=== PATIENT | male | born 1950 | race Caucasian/White ===

== ENCOUNTER 2024-09-20 14:11 | Inpatient (IN) | payer BC, MEDICARE ==
[2024-09-20 14:40] LABS: #Basophils 0.08 10x3/uL (0.0-0.2); %Basophils 0.9 % (0.0-1.0); %Eosinophils 0.3 % (0.0-10.0); %Lymphocytes 15.5 % (21.0-51.0); %Monocytes 6.5 % (0.0-10.0); Hematocrit 45.2 % (42.0-52.0); Hemoglobin 16.5 g/dL (14.0-18.0); Mean Corpuscular HGB CONC 36.5 g/dL (32.0-36.0); Mean Corpuscular Hemoglobin 31.3 pg (27.0-31.0); Mean Corpuscular Volume 85.6 fL (78.0-98.0); Mean Platelet Volume 10.2 fL (7.4-10.4); Platelet Count 289 10x3/uL (130-400); RBC Distribution Width 14.8 % (11.5-14.5); Red Blood Cell (RBC) Count 5.28 mill/uL (4.70-6.10)
[2024-09-20] MEDS ORDERED: Nitroglycerin 2% Ointment 1 INCH/1 GM Packet ONE (14:40)
[2024-09-20] MEDS ORDERED: Furosemide 40 MG (4 mL) VIAL ONE (14:41)
[2024-09-20 15:02] LABS: ALT (SGPT) 24 U/L (8-55); AST (SGOT) 28 U/L (5-34); Albumin 3.6 g/dL (3.4-4.8); Alkaline Phosphatase 82 U/L (40-110); Anion Gap 22 mmol/L (10-20); BUN (Urea Nitrogen) 30 mg/dL (8.4-25.7); Bilirubin, Total 1.8 mg/dL (0.2-1.2); Calc. Creatinine Clearance 0 mL/min (70-130); Calcium 8.8 mg/dL (7.8-10.44); Carbon Dioxide 37 mmol/L (23-31); Chloride 85 mmol/L (98-107); Estimated GFR 36; Globulin 4.4 g/dL (2.4-3.5); Glucose 189 mg/dL (83-110); Potassium 1.9 mmol/L (3.5-5.1); Sodium 142 mmol/L (136-145)
[2024-09-20 15:03] LABS: Troponin I 0.144 ng/mL (< 0.028)
[2024-09-20] MEDS ORDERED: Potassium Chloride 20 MEQ TAB ONE ×2 (15:05→18:46)
[2024-09-20] MEDS ORDERED: Potassium Chloride 20 MEQ (100 mL) BAG ONE ×3 (15:09→22:57)
[2024-09-20] MEDS ORDERED: Electrolyte Replacement Protocol FS SCH (15:29)
[2024-09-20 15:45] LABS: INR-International Normal Ratio 1.2; PTT 31.7 sec (22.9-36.1); Prothrombin Time 15.4 sec (12.0-14.7)
[2024-09-20] MEDS ORDERED: Heparin 25,000 units/D5W 500 ML ONE (15:47)
[2024-09-20] MEDS ORDERED: DOBUTamine 500 mg/250 ml 250 ML ONE ×2 (15:47→22:55)
[2024-09-20] MEDS ORDERED: Aspirin Chewable 81 MG TAB ONE (15:47)
[2024-09-20] MEDS ORDERED: Heparin 5,000 UNITS/ML VIAL ONE (15:47)
[2024-09-20] MEDS: AcetaZOLAMIDE 250 MG TAB PO SCH (17:00)
[2024-09-20 18:07] LABS: Troponin I 0.127 ng/mL (< 0.028)
[2024-09-20 18:08] LABS: Magnesium 1.7 mg/dL (1.6-2.6); Potassium 2.6 mmol/L (3.5-5.1)
[2024-09-20] MEDS: Magnesium Sulfate In Water 4 GM in Premix 1 BAG IVPB SCH (19:02)
[2024-09-20] MEDS: Potassium Chloride 20 MEQ TAB PO SCH (19:03)
[2024-09-20] MEDS ORDERED: Heparin 25,000 units/D5W 500 ML IVPB SCH (20:15)
[2024-09-20] MEDS ORDERED: Heparin 10,000 UNITS/ 10 ML VIAL SLOW IVP SCH (20:15)
[2024-09-20] MEDS ORDERED: Famotidine 20 MG TAB ONE (20:25)
[2024-09-20] MEDS: Famotidine 20 MG TAB PO SCH (20:28)
[2024-09-20 20:41] LABS: Hematocrit 38.4 % (42.0-52.0); Hemoglobin 13.8 g/dL (14.0-18.0); Platelet Count 248 10x3/uL (130-400)
[2024-09-20 20:53] LABS: Troponin I 0.133 ng/mL (< 0.028)
[2024-09-20] MEDS: Potassium Chloride 20 MEQ in Premix 1 BAG IVPB SCH (21:01)
[2024-09-20] MEDS ORDERED: Lorazepam 2 MG/ML VIAL ONE (21:34)
[2024-09-20] MEDS: Lorazepam 2 MG/ML VIAL SLOW IVP SCH (21:41)
[2024-09-21] MEDS: Melatonin 3 MG TAB PO SCH (01:17)
[2024-09-21] MEDS ORDERED: acetaZOLAMIDE Sodium 500 mg Vial IVP SCH (02:00)
[2024-09-21] MEDS: Potassium Chloride 40 MEQ in Sodium Chloride 0.9% 250 ML 250 ML IVPB SCH (02:44)
[2024-09-21 03:17] LABS: Bacteria/HPF None Seen HPF (None Seen); Bilirubin Negative (Negative); Blood, Urine Negative (Negative); Clarity Clear (Clear); Glucose, Urine (Dipstick) Normal (Negative); Ketone, Urine Negative (Negative); Leukocyte Negative Leu/uL (Negative); Nitrite Negative (Negative); Protein, Urine (Dipstick) 10 mg/dL (Neg-Trace); RBC/HPF 0-3 HPF (0-3); Squamous Epithelial None Seen HPF (0-3); Urobilinogen 3 mg/dL (Less than 2); WBC/HPF None Seen HPF (0-3); pH, Urine 6.5 (5.0-9.0)
[2024-09-21] MEDS: DOBUTamine 500 mg/250 ml 250 ML IVPB SCH (03:55)
[2024-09-21 06:38] LABS: #Eosinophils Less than 0.03 10x3/uL (0.0-0.7); %Eosinophils 0.2 % (0.0-10.0); %Lymphocytes 15.4 % (21.0-51.0); %Monocytes 8.3 % (0.0-10.0); %Neutrophils 74.3 % (42.0-75.0); Hematocrit 35.3 % (42.0-52.0); Hemoglobin 12.6 g/dL (14.0-18.0); Mean Corpuscular HGB CONC 35.7 g/dL (32.0-36.0); Mean Corpuscular Hemoglobin 31.6 pg (27.0-31.0); Mean Corpuscular Volume 88.5 fL (78.0-98.0); Mean Platelet Volume 10.5 fL (7.4-10.4); Platelet Count 230 10x3/uL (130-400); RBC Distribution Width 15.2 % (11.5-14.5); Red Blood Cell (RBC) Count 3.99 mill/uL (4.70-6.10)
[2024-09-21 06:46] LABS: Potassium 2.2 mmol/L (3.5-5.1)
[2024-09-21 06:54] LABS: Anion Gap 14 mmol/L (10-20); BUN (Urea Nitrogen) 27 mg/dL (8.4-25.7); Calc. Creatinine Clearance 65 mL/min (70-130); Carbon Dioxide 40 mmol/L (23-31); Chloride 91 mmol/L (98-107); Estimated GFR 41; Glucose 120 mg/dL (83-110); Magnesium 2.3 mg/dL (1.6-2.6); Potassium 2.2 mmol/L (3.5-5.1); Sodium 143 mmol/L (136-145)
[2024-09-21 07:05] LABS: Hemoglobin A1c 5.1 % (4.0-6.0)
[2024-09-21] MEDS: FLU (Fluad Triv) TS24-25 (65UP)/MF59C/PF 45 MCG/0.5 ML Syringe IM ONE (08:03)
[2024-09-21] MEDS: Potassium Chloride 40 MEQ in Premix 1 BAG IVPB SCH (08:56)
[2024-09-21] MEDS: Multivitamin W/ Minerals 1 TAB PO SCH (08:56)
[2024-09-21] MEDS: Thiamine 100 MG TAB PO SCH (08:56)
[2024-09-21] MEDS: Furosemide 40 MG (4 mL) VIAL SLOW IVP SCH (08:57)
[2024-09-21] MEDS: Potassium Chloride 20 MEQ TAB PO SCH ×2 (08:57→22:09)
[2024-09-21] MEDS: Folic Acid 1 MG TAB PO SCH (08:57)
[2024-09-21] MEDS: Heparin 5,000 UNITS/ML VIAL SC SCH (09:55)
[2024-09-21] MEDS: AcetaZOLAMIDE 250 MG TAB PO SCH (14:30)
[2024-09-21 19:28] LABS: Anion Gap 15 mmol/L (10-20); BUN (Urea Nitrogen) 26 mg/dL (8.4-25.7); Calc. Creatinine Clearance 62 mL/min (70-130); Carbon Dioxide 39 mmol/L (23-31); Chloride 93 mmol/L (98-107); Estimated GFR 38; Glucose 129 mg/dL (83-110); Potassium 2.9 mmol/L (3.5-5.1); Sodium 144 mmol/L (136-145)
[2024-09-21] MEDS ORDERED: Potassium Chloride 40 MEQ in Sodium Chloride 0.9% 250 ML 250 ML IVPB SCH (21:30)
[2024-09-21] MEDS: Melatonin 3 MG TAB PO PRN (22:09)
[2024-09-22 05:01] LABS: Anion Gap 15 mmol/L (10-20); BUN (Urea Nitrogen) 25 mg/dL (8.4-25.7); Calc. Creatinine Clearance 54 mL/min (70-130); Calcium 8.3 mg/dL (7.8-10.44); Carbon Dioxide 35 mmol/L (23-31); Chloride 96 mmol/L (98-107); Estimated GFR 41; Glucose 130 mg/dL (83-110); Potassium 3.4 mmol/L (3.5-5.1); Sodium 143 mmol/L (136-145)
[2024-09-22] MEDS: Potassium Chloride 20 MEQ TAB PO SCH ×3 (07:23→16:11)
[2024-09-22] MEDS: Furosemide 40 MG (4 mL) VIAL SLOW IVP SCH (10:16)
[2024-09-22] MEDS: acetaZOLAMIDE Sodium 500 mg Vial IVP SCH ×2 (10:31→13:14)
[2024-09-22] MEDS: Acetaminophen 325 MG TAB PO PRN (13:13)
[2024-09-22 20:25] LABS: Hematocrit 39.5 % (42.0-52.0); Hemoglobin 13.4 g/dL (14.0-18.0); Platelet Count 243 10x3/uL (130-400)
[2024-09-23] MEDS: Furosemide 20 MG (2 mL) VIAL SLOW IVP SCH ×2 (05:13→13:29)
[2024-09-23 05:27] LABS: Anion Gap 15 mmol/L (10-20); BUN (Urea Nitrogen) 22 mg/dL (8.4-25.7); Calc. Creatinine Clearance 59 mL/min (70-130); Calcium 8.6 mg/dL (7.8-10.44); Carbon Dioxide 34 mmol/L (23-31); Chloride 99 mmol/L (98-107); Estimated GFR 51; Glucose 102 mg/dL (83-110); Potassium 3.1 mmol/L (3.5-5.1); Sodium 145 mmol/L (136-145)
[2024-09-23] MEDS: Cefepime 1 GM in Sodium Chloride 0.9% 100 ML IVPB SCH (10:36)
[2024-09-23] MEDS: Potassium Chloride 20 MEQ TAB PO SCH ×2 (11:12→18:09)
[2024-09-23] MEDS: hydrALAZINE 20 MG/ML VIAL SLOW IVP PRN (11:24)
[2024-09-23] MEDS: AcetaZOLAMIDE 250 MG TAB PO SCH (13:29)
[2024-09-23] MEDS: Lorazepam 2 MG/ML VIAL SLOW IVP SCH (14:59)
[2024-09-24 04:07] LABS: #Basophils 0.08 10x3/uL (0.0-0.2); %Basophils 0.9 % (0.0-1.0); %Eosinophils 3.2 % (0.0-10.0); %Lymphocytes 12.4 % (21.0-51.0); %Monocytes 8.3 % (0.0-10.0); %Neutrophils 74.5 % (42.0-75.0); Hematocrit 38.9 % (42.0-52.0); Hemoglobin 12.6 g/dL (14.0-18.0); Mean Corpuscular HGB CONC 32.4 g/dL (32.0-36.0); Mean Corpuscular Hemoglobin 31.4 pg (27.0-31.0); Mean Platelet Volume 10.7 fL (7.4-10.4); Platelet Count 217 10x3/uL (130-400); RBC Distribution Width 15.7 % (11.5-14.5); Red Blood Cell (RBC) Count 4.01 mill/uL (4.70-6.10)
[2024-09-24 04:26] LABS: Anion Gap 15 mmol/L (10-20); BUN (Urea Nitrogen) 26 mg/dL (8.4-25.7); Calc. Creatinine Clearance 55 mL/min (70-130); Calcium 8.6 mg/dL (7.8-10.44); Carbon Dioxide 29 mmol/L (23-31); Chloride 105 mmol/L (98-107); Estimated GFR 47; Glucose 119 mg/dL (83-110); Potassium 3.5 mmol/L (3.5-5.1); Sodium 145 mmol/L (136-145)
[2024-09-24] MEDS: hydrALAZINE 25 MG TAB PO SCH (12:51)
[2024-09-24] MEDS: Cefepime 2 GM in Sodium Chloride 0.9% 100 ML IVPB SCH (23:57)
[2024-09-25 04:02] LABS: #Basophils 0.11 10x3/uL (0.0-0.2); #Eosinophils Less than 0.03 10x3/uL (0.0-0.7); %Eosinophils 0.2 % (0.0-10.0); %Lymphocytes 4.6 % (21.0-51.0); %Monocytes 4.1 % (0.0-10.0); %Neutrophils 87.9 % (42.0-75.0); Hematocrit 42.7 % (42.0-52.0); Hemoglobin 13.4 g/dL (14.0-18.0); Mean Corpuscular HGB CONC 31.4 g/dL (32.0-36.0); Mean Corpuscular Hemoglobin 31.3 pg (27.0-31.0); Mean Corpuscular Volume 99.8 fL (78.0-98.0); Mean Platelet Volume 10.5 fL (7.4-10.4); Platelet Count 245 10x3/uL (130-400); Red Blood Cell (RBC) Count 4.28 mill/uL (4.70-6.10)
[2024-09-25 04:17] LABS: Anion Gap 17 mmol/L (10-20); BUN (Urea Nitrogen) 28 mg/dL (8.4-25.7); Calc. Creatinine Clearance 60 mL/min (70-130); Calcium 8.4 mg/dL (7.8-10.44); Carbon Dioxide 23 mmol/L (23-31); Chloride 111 mmol/L (98-107); Estimated GFR 47; Glucose 207 mg/dL (83-110); Sodium 147 mmol/L (136-145)
[2024-09-25] MEDS: Metolazone 5 MG TAB PO SCH (10:00)
[2024-09-25] MEDS: traMADol HCl 50 MG TAB PO PRN (20:54)
[2024-09-26 04:33] LABS: #Basophils 0.09 10x3/uL (0.0-0.2); %Basophils 1.1 % (0.0-1.0); %Eosinophils 0.8 % (0.0-10.0); %Monocytes 10.6 % (0.0-10.0); %Neutrophils 69.4 % (42.0-75.0); Hematocrit 38.2 % (42.0-52.0); Hemoglobin 12.6 g/dL (14.0-18.0); Mean Corpuscular Hemoglobin 31.5 pg (27.0-31.0); Mean Corpuscular Volume 95.5 fL (78.0-98.0); Platelet Count 188 10x3/uL (130-400); RBC Distribution Width 16.1 % (11.5-14.5)
[2024-09-26 04:52] LABS: Anion Gap 14 mmol/L (10-20); BUN (Urea Nitrogen) 28 mg/dL (8.4-25.7); Calc. Creatinine Clearance 68 mL/min (70-130); Calcium 9.2 mg/dL (7.8-10.44); Carbon Dioxide 24 mmol/L (23-31); Chloride 111 mmol/L (98-107); Estimated GFR 54; Glucose 113 mg/dL (83-110); Magnesium 2.1 mg/dL (1.6-2.6); Potassium 4.3 mmol/L (3.5-5.1); Sodium 145 mmol/L (136-145)
[2024-09-26] MEDS: Metolazone 5 MG TAB PO SCH (11:53)
[2024-09-26 13:25] VITALS: BMI 35.1
[2024-09-26] MEDS: Empagliflozin 10 MG TAB PO SCH (13:54)
[2024-09-26] MEDS: Potassium Chloride 20 MEQ TAB PO SCH (17:08)
[2024-09-27 04:54] LABS: %Basophils 1.3 % (0.0-1.0); %Eosinophils 2.8 % (0.0-10.0); %Lymphocytes 21.4 % (21.0-51.0); %Monocytes 11.2 % (0.0-10.0); %Neutrophils 62.2 % (42.0-75.0); Mean Corpuscular HGB CONC 32.5 g/dL (32.0-36.0); Mean Corpuscular Hemoglobin 31.3 pg (27.0-31.0); Mean Corpuscular Volume 96.2 fL (78.0-98.0); Platelet Count 233 10x3/uL (130-400); RBC Distribution Width 15.7 % (11.5-14.5); Red Blood Cell (RBC) Count 4.16 mill/uL (4.70-6.10)
[2024-09-27 05:01] LABS: Anion Gap 13 mmol/L (10-20); BUN (Urea Nitrogen) 34 mg/dL (8.4-25.7); Calc. Creatinine Clearance 63 mL/min (70-130); Calcium 9.1 mg/dL (7.8-10.44); Carbon Dioxide 26 mmol/L (23-31); Chloride 108 mmol/L (98-107); Estimated GFR 50; Glucose 102 mg/dL (83-110); Potassium 4.3 mmol/L (3.5-5.1); Sodium 143 mmol/L (136-145)
[2024-09-27] MEDS: Empagliflozin 10 MG TAB PO SCH (09:23)
[2024-09-27] MEDS: Tamsulosin HCl 0.4 MG CAP PO SCH (14:57)
[2024-09-27] MEDS: Torsemide 20 MG TAB PO SCH (14:57)
[2024-09-27] MEDS: Spironolactone 25 MG TAB PO SCH (14:57)
[2024-09-27] MEDS: Metoprolol Tartrate 5 MG (5 mL) VIAL ONE (18:38)
[2024-09-27] MEDS: Metoprolol Tartrate 5 MG (5 mL) VIAL IVP SCH (19:45)
[2024-09-27] MEDS: dilTIAZem 125 MG, Admixture Fee 1 EACH in Sodium Chloride 0.9% 100 ML IVPB SCH (22:47)
[2024-09-28 04:11] LABS: #Basophils 0.14 10x3/uL (0.0-0.2); %Eosinophils 1.8 % (0.0-10.0); %Lymphocytes 15.3 % (21.0-51.0); %Monocytes 12.1 % (0.0-10.0); %Neutrophils 67.7 % (42.0-75.0); Hematocrit 46.5 % (42.0-52.0); Hemoglobin 15.6 g/dL (14.0-18.0); Mean Corpuscular HGB CONC 33.5 g/dL (32.0-36.0); Mean Corpuscular Hemoglobin 31.1 pg (27.0-31.0); Mean Corpuscular Volume 92.6 fL (78.0-98.0); Mean Platelet Volume 11.3 fL (7.4-10.4); Platelet Count 220 10x3/uL (130-400); RBC Distribution Width 15.1 % (11.5-14.5); Red Blood Cell (RBC) Count 5.02 mill/uL (4.70-6.10)
[2024-09-28 04:24] LABS: Anion Gap 17 mmol/L (10-20); BUN (Urea Nitrogen) 34 mg/dL (8.4-25.7); Calc. Creatinine Clearance 60 mL/min (70-130); Calcium 10.1 mg/dL (7.8-10.44); Carbon Dioxide 26 mmol/L (23-31); Chloride 102 mmol/L (98-107); Estimated GFR 48; Glucose 124 mg/dL (83-110); Potassium 4.2 mmol/L (3.5-5.1); Sodium 141 mmol/L (136-145)
[2024-09-28] MEDS: dilTIAZem 25 MG/5 ML VIAL SLOW IVP SCH (04:49)
[2024-09-28] MEDS: Metoprolol Tartrate 5 MG (5 mL) VIAL ONE (05:42)
[2024-09-28 06:00] VITALS: BMI 29.9
[2024-09-28] MEDS: Tamsulosin HCl 0.4 MG CAP PO SCH (10:13)
[2024-09-28] MEDS: Sterile Water 10 ML ONE (10:15)
[2024-09-28] MEDS: Spironolactone 25 MG TAB PO SCH (10:15)
[2024-09-28] MEDS: dilTIAZem 30 MG TAB PO SCH ×2 (10:30→12:30)
[2024-09-28] MEDS: OLANZapine 10 MG VIAL IM SCH (13:32)
[2024-09-28] MEDS ORDERED: Furosemide 20 MG (2 mL) VIAL SLOW IVP SCH (14:00)
[2024-09-28] MEDS ORDERED: Torsemide 20 MG TAB PO SCH (14:30)
[2024-09-28] MEDS: hydrALAZINE 25 MG TAB PO SCH (15:12)
[2024-09-29 05:39] LABS: #Basophils 0.13 10x3/uL (0.0-0.2); %Basophils 1.7 % (0.0-1.0); %Eosinophils 2.3 % (0.0-10.0); %Lymphocytes 24.2 % (21.0-51.0); %Monocytes 15.5 % (0.0-10.0); %Neutrophils 55.5 % (42.0-75.0); Hematocrit 40.7 % (42.0-52.0); Hemoglobin 13.6 g/dL (14.0-18.0); Mean Corpuscular HGB CONC 33.4 g/dL (32.0-36.0); Mean Corpuscular Hemoglobin 31.5 pg (27.0-31.0); Mean Corpuscular Volume 94.2 fL (78.0-98.0); Mean Platelet Volume 11.2 fL (7.4-10.4); Platelet Count 274 10x3/uL (130-400); Red Blood Cell (RBC) Count 4.32 mill/uL (4.70-6.10)
[2024-09-29 06:13] LABS: Anion Gap 15 mmol/L (10-20); BUN (Urea Nitrogen) 37 mg/dL (8.4-25.7); Calc. Creatinine Clearance 50 mL/min (70-130); Calcium 8.9 mg/dL (7.8-10.44); Carbon Dioxide 24 mmol/L (23-31); Chloride 105 mmol/L (98-107); Estimated GFR 47; Glucose 116 mg/dL (83-110); Potassium 3.9 mmol/L (3.5-5.1); Sodium 140 mmol/L (136-145)
[2024-09-29] MEDS: Torsemide 20 MG TAB PO SCH (09:38)
[2024-09-29] MEDS ORDERED: Iopamidol 370 76% 100 ML VIAL ONE (12:46)
[2024-09-29] MEDS ORDERED: CEFAZOLIN 2 GM VIAL ONE (12:58)
[2024-09-29] MEDS ORDERED: Gentamicin 80 MG/2 ML VIAL ONE (12:58)
[2024-09-29] MEDS ORDERED: fentaNYL 50 mcg/mL 1 mL Vial ONE ×2 (13:43→14:13)
[2024-09-29] MEDS ORDERED: PHENYLEPHRINE-NS 100 MCG/ML 10 ML SYRINGE ONE (13:46)
[2024-09-29] MEDS ORDERED: Propofol 1,000 MG/100 ML VIAL IV ONE ×2 (13:59→14:26)
[2024-09-29] MEDS ORDERED: Dexamethasone 20 MG/5 ML VIAL ONE (14:08)
[2024-09-29] MEDS ORDERED: Lidocaine 1% PF 5 ML VIAL ONE (14:08)
[2024-09-29] MEDS ORDERED: PROPOFOL 20 ML ONE (14:13)
[2024-09-29] MEDS: Cephalexin 250 MG CAP PO SCH (21:36)
[2024-09-30 04:13] VITALS: TEMP 98.4
[2024-09-30 04:44] LABS: #Basophils 0.08 10x3/uL (0.0-0.2); #Eosinophils Less than 0.03 10x3/uL (0.0-0.7); %Basophils 0.8 % (0.0-1.0); %Lymphocytes 7.4 % (21.0-51.0); %Monocytes 8.8 % (0.0-10.0); %Neutrophils 82.3 % (42.0-75.0); Hematocrit 38.5 % (42.0-52.0); Hemoglobin 12.6 g/dL (14.0-18.0); Mean Corpuscular HGB CONC 32.7 g/dL (32.0-36.0); Mean Corpuscular Hemoglobin 30.8 pg (27.0-31.0); Mean Corpuscular Volume 94.1 fL (78.0-98.0); Mean Platelet Volume 10.8 fL (7.4-10.4); Platelet Count 266 10x3/uL (130-400); RBC Distribution Width 14.7 % (11.5-14.5); Red Blood Cell (RBC) Count 4.09 mill/uL (4.70-6.10)
[2024-09-30 08:24] VITALS: BP 167/86
[2024-09-30] MEDS: Potassium Chloride 20 MEQ TAB PO SCH (10:16)
[2024-09-30] MEDS: Furosemide 40 MG (4 mL) VIAL SLOW IVP SCH (10:17)
[2024-09-30] MEDS: Carvedilol 6.25 MG TAB PO SCH (10:17)
[2024-09-30] MEDS ORDERED: Carvedilol 6.25 MG TAB PO SCH (17:00)
== END 2024-09-30 12:00 | disposition home health service (06) | DRG 242 ==
LOC: ERS 14:11 → ERHOLD 15:46 → CCU 09-21 01:45 → 2NO 09-21 20:54
PROVIDERS: ADMIT Internal Medicine; ATTEND Family Medicine
PROC: 0JH606Z Insertion of Pacemaker, Dual Chamber into Chest Subcutaneous Tissue and Fascia, Open Approach (ICD-10-PCS; principal; 2024-09-29)
PROC: 02H63JZ Insertion of Pacemaker Lead into Right Atrium, Percutaneous Approach (ICD-10-PCS; 2024-09-29)
PROC: 02HK3JZ Insertion of Pacemaker Lead into Right Ventricle, Percutaneous Approach (ICD-10-PCS; 2024-09-29)
DX: I13.0 Hypertensive heart and chronic kidney disease with heart failure and stage 1 through stage 4 chronic kidney disease, or unspecified chronic kidney disease (principal); I21.A1 Myocardial infarction type 2; I50.33 Acute on chronic diastolic (congestive) heart failure; J18.9 Pneumonia, unspecified organism; J96.01 Acute respiratory failure with hypoxia; I48.92 Unspecified atrial flutter; N17.9 Acute kidney failure, unspecified; E87.1 Hypo-osmolality and hyponatremia; E87.3 Alkalosis; E87.0 Hyperosmolality and hypernatremia; E87.6 Hypokalemia; E78.5 Hyperlipidemia, unspecified; I49.5 Sick sinus syndrome; N18.30 Chronic kidney disease, stage 3 unspecified; F10.10 Alcohol abuse, uncomplicated; Z66 Do not resuscitate; R00.1 Bradycardia, unspecified; R94.31 Abnormal electrocardiogram [ECG] [EKG]; R73.9 Hyperglycemia, unspecified; E83.42 Hypomagnesemia; R33.9 Retention of urine, unspecified; N40.1 Benign prostatic hyperplasia with lower urinary tract symptoms; Z91.148 Patient's other noncompliance with medication regimen for other reason
CPT/HCPCS: 33208; 36415; 71045; 80048; 80053; 81001; 83036; 83735; 83880; 84132; 84484; 85014; 85018; 85025; 85049; 85610; 85730; 87633; 87798; 93005; 93010; 93306; 93798; 94660; 94760; 96365; 96366; 96375; 96376; C1785; C1898; J0360; J0692; J1100; J1120; J1250; J1580; J1644; J1940; J2060; J2704; J3010; J3475; J3480; J7050; Q9967